=== PATIENT | female | born 2000 | race Caucasian/White ===

== ENCOUNTER 2025-08-14 08:23 | Outpatient (CLI) | payer OTHER | END 2025-08-14 08:24 | disposition home or self-care (01) | LOC: CSHSLEEP 08:23 | PROVIDERS: ATTEND Allergy & Immunology | DX: G47.33 Obstructive sleep apnea (adult) (pediatric) (principal); G47.9 Sleep disorder, unspecified; R53.83 Other fatigue | CPT/HCPCS: 95800 ==